=== PATIENT | male | born 1975 | race Asian ===

== ENCOUNTER 2023-04-20 12:17 | Emergency (ER) | payer MEDICAID ==
[~2023-04-20] VITALS: Ht 177.8 cm; Wt 75.3 kg
[2023-04-20 12:19] VITALS: BP 123/79
--- NOTE | 2023-04-20 12:25 | NUR ---
pt ambulatory to [facility]
--- NOTE | 2023-04-20 12:28 | NUR ---
pt to bed 09
--- NOTE | 2023-04-20 12:52 | NUR ---
PT bibs, referred from primary for elevated white count. Pt has no symptoms or complaints at this time. Pt is a/o x 4, vss, no ss of acute distress, breathing equal and unlabored, speech clear. Pt on monitor. 20g placed in L forearm. Labs handed to lab at bedside. Pt on monitor. Report given to primary RN.
[2023-04-20 13:05] LABS: HEMOGLOBIN 10.1 g/dL (12.0-18.0); MEAN CORPUSCULAR HEMOGLOBIN 30 pg (27-31); MEAN CORPUSCULAR HGB CONC 32 g/dL (33-37); MEAN CORPUSCULAR VOLUME 91.5 fL (80-94); PLATELET COUNT (AUTO) 363 K/uL (140-450); RED BLOOD CELL COUNT(AUTO) 3.39 MIL/uL (4.20-6.10); RED CELL DISTRIBUTION WIDTH 17.9 % (11.6-13.7)
[2023-04-20 13:18] LABS: ALBUMIN 4.4 g/dL (3.4-5.0); ANION GAP 14.8 (8-16); CARBON DIOXIDE 25.6 mmol/L (21-32); CREATININE 0.9 mg/dL (0.6-1.3); MAGNESIUM 2.2 mg/dL (1.8-2.4); PHOSPHORUS 4.2 mg/dL (2.5-4.9); POTASSIUM 3.4 mmol/L (3.5-5.1); TOTAL BILIRUBIN 0.5 mg/dL (0.0-1.0)
[2023-04-20 13:20] LABS: WHITE BLOOD COUNT (AUTO) 277.8 K/uL (4.8-10.8)
[2023-04-20 14:43] LABS: BLASTS, MANUAL % 4 % (0-0); EOSINOPHILS % (MANUAL) 2 % (0-4); LYMPHOCYTES % (MANUAL) 5 % (20-46); METAMYELOCYTES % 9 % (0-0); MONOCYTES % (MANUAL) 1 % (5-12); MYELOCYTES % 1 % (0-0); PROMYELOCYTES % 5 % (0-0)
[2023-04-20 16:45] VITALS: BP 131/86
--- NOTE | 2023-04-20 16:45 | NUR ---
Patient discharged with v/s stable. Written and verbal after care instructions given and explained. Patient verbalized understanding. Ambulatory with steady gait. All questions addressed prior to discharge. Advised to follow up with PMD AND REFERRAL TO HEMO/ONCOLOGY AT [facility].
== END 2023-04-20 16:45 | disposition home or self-care (01) ==
LOC: MED 12:17
DX: D72.829 Elevated white blood cell count, unspecified (principal); Z79.899 Other long term (current) drug therapy
CPT/HCPCS: 36415; 71045; 71260; 74177; 80053; 83735; 84100; 85025; 99285; Q9967